=== PATIENT | female | born 1970 | race Caucasian/White ===

== ENCOUNTER → 2016-12-07 | Outpatient (CLI) | payer BC ==
[~2016-12-07] MED LIST: "\\\"PREP SPRAY\\\"-TIN4 OZ"; AMIODARONE HCL200 MG PO; ASPIRIN LO-DOSE81 MG PO; COLACE100 MG PO; IMDUR30 MG PO; K-TAB 10MEQ10 MEQ PO; LASIX40 MG PO; LEXAPRO20 MG PO; LIPITOR10 MG PO; NORCO 5-325 MG1 TAB PO; PLAVIX75 MG PO; PRINIVIL OR ZES10 MG PO; PROMETH-CODEIN 65 ML PO; PROTONIX40 MG PO; SOMA350 MG PO; THERAGRAN-M1 TAB PO; TOPROL XL25 MG PO; TYLENOL325 MG PO; ULTRAM50 MG PO; ZESTRIL2.5 MG PO; ZOLOFT100 MG PO; [UNRECOGNIZED DRUG - OTHER] PO
[2016-12-07 10:29] LABS: ALBUMIN 3.5 gm/dL (3.5-5.0); ALK PHOS 77 IU/L (33-138); ALT 22 IU/L (12-78); ANION GAP 12.4 (10.0-19.0); AST 21 IU/L (10-40); BLOOD UREA NITROGEN 18 mg/dL (6-24); CALCIUM 8.7 mg/dL (8.5-10.5); CHLORIDE 108 mMol/L (96-110); CO2 29 mMol/L (22-32); CREATININE 0.8 mg/dL (0.5-1.1); ESTIMATED GFR (MDRD EQUATION) > 60; POTASSIUM 4.4 mMol/L (3.7-5.1); SODIUM 145 mMol/L (135-145); TOTAL BILIRUBIN 0.3 mg/dL (0.0-1.5); TOTAL PROTEIN 7.1 g/dL (6.0-8.4)
== END | disposition disaster alternative care site (69) ==
LOC: LNHI 10:09
PROVIDERS: Internal Medicine Interventional Cardiology
DX: E78.5 Hyperlipidemia, unspecified (principal); I25.10 Atherosclerotic heart disease of native coronary artery without angina pectoris; I10 Essential (primary) hypertension